=== PATIENT | female | born 1965 | race Caucasian/White ===

== ENCOUNTER 2024-04-02 10:28 | Outpatient (CLI) | payer OTHER, SELFPAY ==
--- NOTE | ~2024-04-02 | MM_ITS ---
EXAMINATION: MM screening quyen BI w alicia HISTORY: Screening mammogram TECHNIQUE: Craniocaudal and mediolateral oblique 3-D tomosynthesis images were obtained and synthetic 2-D images were generated. CAD analysis was submitted and interpreted. COMPARISON: 07/05/2013 BREAST PARENCHYMAL COMPOSITION:Dense: The breasts are heterogeneously dense, which may obscure small masses. FINDINGS: There are focal calcifications at the upper, outer left breast. No suspicious mass or archi tectural distortion are identified in either breast to suggest malignancy. No suspicious right breast calcifications. IMPRESSION: Focal calcifications upper, outer left breast. Spot magnification views are recommended for further evaluation. BI-RADS Category 0: Incomplete: Needs additional imaging evaluation. Reviewed, dictated and finalized at location . IMPRESSION: Focal calcifications upper, outer left breast. Spot magnification views are re commended for further evaluation. BI-RADS Category 0: Incomplete: Needs additional imaging evaluation.
== END 2024-04-02 10:29 | disposition home or self-care (01) ==
LOC: ANHIMG 10:32
PROVIDERS: PCP Family Medicine Sports Medicine; Visit Provider Family Medicine Sports Medicine
DX: Z12.31 Encounter for screening mammogram for malignant neoplasm of breast (principal); R92.8 Other abnormal and inconclusive findings on diagnostic imaging of breast
CPT/HCPCS: 77063; 77067

== ENCOUNTER 2024-05-10 10:53 | Outpatient (CLI) | payer OTHER, SELFPAY ==
--- NOTE | ~2024-05-10 | MM_ITS ---
EXAMINATION: MM diagnostic quyen LT w alicia HISTORY: Follow-up left breast calcifications TECHNIQUE: Additional 3-D tomosynthesis images of the left breast were performed and synthetic 2-D im ages were generated. CAD analysis was submitted and interpreted. COMPARISON: 04/02/2024 and 07/29/2013 BREAST PARENCHYMAL COMPOSITION: Dense: The breasts are heterogeneously dense, which may obscure small masses FINDINGS: There is a cluster of pleomorphic calcifications in the upper outer quadrant of the left br east, middle third. There are no discrete masses or architectural distortion. IMPRESSION: 1. Cluster of pleomorphic left breast calcifications, upper outer quadrant. 2. Stereotactic left breast biopsy recommended. BI-RADS category 4, suspicious findings. Reviewed, dictated and finalized at location B.
== END 2024-05-10 10:54 | disposition home or self-care (01) ==
PROVIDERS: PCP Family Medicine Sports Medicine; Visit Provider Family Medicine Sports Medicine
DX: R92.8 Other abnormal and inconclusive findings on diagnostic imaging of breast (principal)
CPT/HCPCS: 77061; 77065; G0279